=== PATIENT | male | born 1955 | race African-American/Black ===

== ENCOUNTER 2025-01-14 08:01 | Emergency (ER) | payer OTHER ==
[~2025-01-14] VITALS: Ht 175.3 cm; Wt 80.0 kg
[2025-01-14 08:04] VITALS: TEMP 36.6; O2SAT 100
[2025-01-14] MEDS ORDERED: TETRACAINE 0.5% OPHTH DROPS 4ML BOTHEYE ONE (08:15)
[2025-01-14] MEDS ORDERED: FLUORESCEIN SODIUM 1MG/STRIP BOTHEYE ONE (08:15)
[2025-01-14 09:07] LABS: HEMATOCRIT 45.9 % (42.0-52.0); MEAN CORPUSCULAR HEMOGLOBIN 27.5 pg (28.0-32.0); MEAN CORPUSCULAR HGB CONC 32.8 g/dL (31.0-37.0); PLATELET 268 x1000/uL (130-400); RED BLOOD CELL COUNT 5.46 mill/uL (4.7-6.1); RED CELL DISTRIBUTION WIDTH 14.6 % (11.6-14.6); WHITE BLOOD COUNT 10.1 x1000/uL (4.5-11.0)
[2025-01-14 09:13] LABS: CHLORIDE 101 mEq/L (98-107); POTASSIUM 3.1 mEq/L (3.5-5.1); SODIUM 137 mEq/L (136-145)
[2025-01-14 09:14] LABS: CALCIUM 9.6 mg/dL (8.7-10.4); CARBON DIOXIDE 29 mEq/L (21-32)
[2025-01-14 09:19] LABS: CREATININE 0.9 mg/dL (0.6-1.3); GLUCOSE 130 mg/dL (70-105); UREA NITROGEN BLOOD 13 mg/dL (9-23)
[2025-01-14 09:43] VITALS: BP 171/113; PULSE 88; RESP 18
[2025-01-14] MEDS: KETOROLAC 15MG/ML VIAL IV NR (09:43)
[2025-01-14] MEDS: LABETALOL 5MG/ML 4ML INJ IV ONE (09:43)
[2025-01-14] MEDS ORDERED: FLUORESCEIN SODIUM 1MG/STRIP BOTHEYE NR (10:30)
[2025-01-14] MEDS ORDERED: TETRACAINE 0.5% OPHTH DROPS 4ML BOTHEYE NR (10:30)
[2025-01-14] MEDS ORDERED: IOHEXOL-350 100 ML BOTTLE ONE (10:55)
[2025-01-14] MEDS: POTASSIUM CHLORIDE 20MEQ TABLET SR PO NR (11:05)
[2025-01-14] MEDS: ACETAMINOPHEN 500MG TABLET PO NR (11:05)
== END 2025-01-14 11:20 | disposition home or self-care (01) ==
LOC: ER 08:01
DX: H57.11 Ocular pain, right eye (principal); H54.61 Unqualified visual loss, right eye, normal vision left eye; R51.9 Headache, unspecified; E87.6 Hypokalemia; I63.81 Other cerebral infarction due to occlusion or stenosis of small artery; I10 Essential (primary) hypertension; Z79.899 Other long term (current) drug therapy
CPT/HCPCS: 99285; 70496; 96374; 96375; 80048; 85027; 36415; 70450; J1885; Q9967; J3490

== ENCOUNTER 2025-03-17 03:30 | Emergency (ER) | payer OTHER ==
[~2025-03-17] VITALS: Ht 177.8 cm; Wt 82.0 kg
[2025-03-17 03:34] VITALS: O2SAT 96
[2025-03-17] MEDS: ACETAMINOPHEN 325MG TABLET PO ONE (06:15)
[2025-03-17 06:20] VITALS: TEMP 36.8
[2025-03-17 07:50] VITALS: BP 145/84; PULSE 70; RESP 14; O2SAT 96
== END 2025-03-17 08:05 | disposition home or self-care (01) ==
LOC: ER 03:43
DX: M25.532 Pain in left wrist (principal); I10 Essential (primary) hypertension; W01.0XXA Fall on same level from slipping, tripping and stumbling without subsequent striking against object, initial encounter; Y93.89 Activity, other specified; Y92.89 Other specified places as the place of occurrence of the external cause; Y99.9 Unspecified external cause status
CPT/HCPCS: 99283; 73110; 29125; A6449